=== PATIENT | female | born 1945 | race Caucasian/White ===

== ENCOUNTER → 2018-10-20 | Outpatient (CLI) | payer OTHER, MEDICARE ==
[~2018-10-20] MED LIST: Z.0.BYSTOLIC10 MG PO; Z.0.DIOVAN160 MG PO
--- NOTE | 2018-10-20 13:49 | Diagnostic Imaging Report ---
Ultrasound of the thyroid Clinical indications: Thyroid nodules Comparison: None Technique/findings: Multiple transverse and longitudinal images of the thyroid were obtained using a 12 MHz linear transducer. Both grayscale and color Doppler images were obtained. The right lobe of the thyroid gland measures 4.6 x 1.2 x 1.8 cm. Two spongiform nodules are identified measuring 0.9 x 0.5 x 0.6 cm and 0.7 x 0.5 x 0.6 cm. The left lobe of the thyroid measures 4.6 x 1.2 x 1.6 cm. There is a 0.5 x 0.3 x 0.5 cm cystic anechoic nodule in the lower pole. The isthmus measures 0.3 cm in thickness. Impression: Subcentimeter bilateral thyroid nodules as described above. Signed by: Omer Diaz MD on 10/20/2018 1:46 PM
== END ==
LOC: US 10:52
PROVIDERS: ATTEND Otolaryngology
DX: E04.2 Nontoxic multinodular goiter (principal)
CPT/HCPCS: 76536